=== PATIENT | male | born 1935 | race Caucasian/White ===

== ENCOUNTER 2019-05-26 10:03 | Day surgery (SDC) | payer OTHER ==
[2019-05-17 17:06] VITALS: BMI 20.7
[2019-05-26 11:20] VITALS: TEMP 97.6
[2019-05-26 13:22] VITALS: PULSE 78
[2019-05-26 13:52] VITALS: BP 133/74
--- NOTE | 2019-05-31 17:21 | PATH ---
Surgical Pathology Report Patient Name: VANESSA ELAINE Med. Rec. #: [id number] /Age/Gender: 1935 (Age: 84) / M Account: [id number] Location: [facility] Taken: 05/26/2019 Received: 05/26/2019 Reported: 05/31/2019 Physicians: Rochelle Washington M.D. Specimen(s) Received A: RANDOM RIGHT COLON B: RANDOM TRANSVERSE COLON C: RANDOM DESCENDING COLON D: RANDOM RECTUM Clinical History Diarrhea Postoperative diagnosis: Hemorrhoids Final Diagnosis A. RANDOM COLON, RIGHT, BIOPSY: COLONIC MUCOSA WITH INCREASED CHRONIC INFLAMMATORY INFILTRATE WITHIN LAMINA PROPRIA, RARE FOCUS OF LOOSELY COHESIVE EPITHELIOID HISTIOCYTES SUGGESTIVE OF GRANULOMA, AND PROMINENT LYMPHOID AGGREGATES. NO SIGNIFICANT ARCHITECTURAL DISTORTION IDENTIFIED. NO ACTIVE INFLAMMATION IDENTIFIED. SEE COMMENT. B. RANDOM TRANSVERSE COLON, BIOPSY: COLONIC MUCOSA WITHOUT SIGNIFICANT PATHOLOGIC FINDINGS. C. RANDOM DESCENDING COLON, BIOPSY: COLONIC MUCOSA WITH PROMINENT LYMPHOID AGGREGATE. D. RANDOM RECTUM, BIOPSY: COLONIC MUCOSA WITH SMALL LYMPHOID AGGREGATE. Comment: Part A, Findings are non-specific. Differential diagnosis is broad, includes self- limited colitis, infection, and possibility of inflammatory bowel disease. Special stains for fungus (PAS) and acid-fast bacilli (AFB) are non-contributory, due to lack of lesional material on subsequent deeper levels. Suggest clinical and endoscopic correlation. Electronically Signed Rochelle Sherman M.D. Gross Description A. Received in formalin, labeled "biopsy random right colon" is a kang, irregular portion of soft tissue measuring 1.0 cm. in greatest dimension. The specimen is submitted in toto in one cassette. B. Received in formalin, labeled "biopsy random transverse" is a kang, irregular portion of soft tissue measuring 0.4 cm. in greatest dimension. The specimen is submitted in toto in one cassette. C. Received in formalin, labeled "biopsy random descending colon" is a kang, irregular portion of soft tissue measuring 0.3 cm. in greatest dimension. The specimen is submitted in toto in one cassette. D. Received in formalin, labeled "biopsy random rectum" is a kang, irregular portion of soft tissue measuring 0.4 cm. in greatest dimension. The specimen is submitted in toto in one cassette. 05/28/2019 saudi05/28/2019
== END 2019-05-26 13:50 | disposition home or self-care (01) ==
LOC: FASU 10:03
PROVIDERS: ATTEND Internal Medicine Gastroenterology
PROC: 0DBL8ZX Excision of Transverse Colon, Via Natural or Artificial Opening Endoscopic, Diagnostic (ICD-10-PCS; 2019-05-26)
PROC: 0DBP8ZX Excision of Rectum, Via Natural or Artificial Opening Endoscopic, Diagnostic (ICD-10-PCS; 2019-05-26)
PROC: 0DBK7ZX Excision of Ascending Colon, Via Natural or Artificial Opening, Diagnostic (ICD-10-PCS; 2019-05-26)
PROC: 0DBM8ZX Excision of Descending Colon, Via Natural or Artificial Opening Endoscopic, Diagnostic (ICD-10-PCS; principal; 2019-05-26 12:47)
DX: K64.8 Other hemorrhoids (principal); K64.0 First degree hemorrhoids
CPT/HCPCS: 88305-TC